=== PATIENT | male | born 1990 | race Caucasian/White ===

== ENCOUNTER 2023-10-26 14:01 | Day surgery (SDC) | payer OTHER ==
[2023-10-26] MEDS ORDERED: Xylocaine-Mpf 2% 5 Ml Vial IJ ONE ×2 (14:02)
[2023-10-26] MEDS ORDERED: DIPRIVAN 200 MG/20 ML IV ONE (15:37)
[2023-10-26] MEDS ORDERED: Lactated Ringers 1,000 ML IV ONE (15:53)
--- NOTE | 2023-10-26 16:48 | XRAY ---
Indication: Bilateral L4-S1 MBB. Intraoperative fluoroscopy provided for 10 seconds. 2 digital spot image submitted for interpretation demonstrates posterior needle tips projecting over expected left and right L4-S1 nerve roots. Correlate with intraoperative findings/report.
--- NOTE | 2023-10-27 14:46 | XRAY ---
10 seconds of fluoroscopy was used in surgery for a bilateral L4-S1 MBB.
== END 2023-10-26 16:10 | disposition home or self-care (01) ==
LOC: SDC-PAIN 14:01
PROVIDERS: ATTEND Psychiatry & Neurology Pain Medicine
DX: M47.816 Spondylosis without myelopathy or radiculopathy, lumbar region (principal)
CPT/HCPCS: 64493; 64494; 72020; 77002; J2704

== ENCOUNTER 2023-12-07 13:55 | Day surgery (SDC) | payer OTHER ==
[2023-12-07] MEDS ORDERED: BUPIVACAINE 0.5% VIAL IJ ONE (13:56)
[2023-12-07] MEDS ORDERED: Depo-Medrol 40 MG/ML IM ONE (13:56)
[2023-12-07] MEDS ORDERED: DIPRIVAN 200 MG/20 ML IV ONE (15:40)
[2023-12-07] MEDS ORDERED: Lactated Ringers 1,000 ML IV ONE (16:12)
--- NOTE | 2023-12-07 16:40 | XRAY ---
Indication: Bilateral L4-S1 MBB. Intraoperative fluoroscopy provided for 11 seconds. Single digital spot image submitted for interpretation demonstrates posterior needle tips projecting over the expected left and right L4-S1 nerve roots. Correlate with intraoperative findings/report.
--- NOTE | 2023-12-07 16:44 | XRAY ---
11 seconds of fluoroscopy was used in surgery for a bilateral L4-S1 MBB.
== END 2023-12-07 16:05 | disposition home or self-care (01) ==
LOC: SDC-PAIN 13:55
PROVIDERS: ATTEND Psychiatry & Neurology Pain Medicine
DX: M47.816 Spondylosis without myelopathy or radiculopathy, lumbar region (principal)
CPT/HCPCS: 64493; 64494; 72020; 77002; J1010; J2704

== ENCOUNTER 2024-01-11 12:28 | Day surgery (SDC) | payer OTHER ==
[2024-01-11] MEDS ORDERED: BUPIVACAINE 0.5% VIAL IJ ONE (12:29)
[2024-01-11] MEDS ORDERED: LIDOCAINE HCL 1% 50 MG/5 ML VL PF IJ ONE (12:29)
[2024-01-11] MEDS ORDERED: Depo-Medrol 40 MG/ML IM ONE (12:29)
[2024-01-11] MEDS ORDERED: DIPRIVAN 200 MG/20 ML IV ONE ×2 (13:34→13:38)
[2024-01-11] MEDS ORDERED: Lactated Ringers 1,000 ML IV ONE (14:07)
--- NOTE | 2024-01-11 16:34 | XRAY ---
Indication: Right L4-S1 RFA. Intraoperative fluoroscopy provided for 14 seconds. 3 digital spot images submitted for interpretation demonstrates posterior needle tips projecting over expected right L4-S1 nerve roots. Correlate with intraoperative findings/report.
--- NOTE | 2024-01-11 17:17 | XRAY ---
14 seconds of fluoroscopy was used in surgery for a right L4-S1 RFA.
== END 2024-01-11 14:05 | disposition home or self-care (01) ==
LOC: SDC-PAIN 12:28
PROVIDERS: ATTEND Psychiatry & Neurology Pain Medicine
DX: M47.816 Spondylosis without myelopathy or radiculopathy, lumbar region (principal)
CPT/HCPCS: 64635; 64636; 72100; 77002; J2001; J2704

== ENCOUNTER 2024-01-18 13:17 | Day surgery (SDC) | payer OTHER ==
[2024-01-18] MEDS ORDERED: LIDOCAINE HCL 1% 50 MG/5 ML VL PF IJ ONE (13:18)
[2024-01-18] MEDS ORDERED: Depo-Medrol 40 MG/ML IM ONE (13:18)
[2024-01-18] MEDS ORDERED: BUPIVACAINE 0.5% VIAL IJ ONE (13:18)
[2024-01-18] MEDS ORDERED: DIPRIVAN 200 MG/20 ML IV ONE (14:39)
[2024-01-18] MEDS ORDERED: Lactated Ringers 1,000 ML IV ONE (15:22)
--- NOTE | 2024-01-18 16:30 | XRAY ---
Indication: Left L4-S1 RFA. Intraoperative fluoroscopy provided for 18 seconds. 4 digital spot image submitted for interpretation demonstrates posterior needle tips projecting over the expected left L4-S1 nerve roots. Correlate with intraoperative findings/report.
--- NOTE | 2024-01-18 16:53 | XRAY ---
18 seconds of fluoroscopy was used in surgery for a left L4-S1 RFA.
== END 2024-01-18 15:08 | disposition home or self-care (01) ==
LOC: SDC-PAIN 13:17
PROVIDERS: ATTEND Psychiatry & Neurology Pain Medicine
DX: M47.816 Spondylosis without myelopathy or radiculopathy, lumbar region (principal)
CPT/HCPCS: 64635; 64636; 72100; 77002; J2001; J2704

== ENCOUNTER 2024-07-11 11:38 | Day surgery (SDC) | payer OTHER ==
[2024-07-11] MEDS ORDERED: BUPIVACAINE 0.5% VIAL IJ ONE (11:39)
[2024-07-11] MEDS ORDERED: Depo-Medrol 40 MG/ML IM ONE (11:39)
[2024-07-11] MEDS ORDERED: propofoL IV ONE (12:34)
--- NOTE | 2024-07-11 14:43 | XRAY ---
Indication: Bilateral SI joint injection. Intraoperative fluoroscopy provided for 23 seconds. 4 digital spot image submitted for interpretation demonstrates posterior needle tips projecting over left and right SI joints. Small amount of contrast injected for needle tip placement. Correlate with intraoperative findings/report.
--- NOTE | 2024-07-11 14:52 | XRAY ---
23 seconds of fluoroscopy was used in surgery for a bilateral sacroiliac joint injection.
== END 2024-07-11 13:14 | disposition home or self-care (01) ==
LOC: SDC-PAIN 11:38
PROVIDERS: ATTEND Psychiatry & Neurology Pain Medicine
DX: M46.1 Sacroiliitis, not elsewhere classified (principal)
CPT/HCPCS: 27096; 72202; 77002; J2704; Q9966